=== PATIENT | male | born 2005 | race Caucasian/White ===

== ENCOUNTER 2024-01-31 14:49 | Emergency (ER) | payer OTHER, SELFPAY ==
[2024-01-31 14:51] VITALS: BP 122/87
[2024-01-31 14:56] LABS: Glucose - Point of Care 93 mg/dl (70-99)
[2024-01-31 15:08] LABS: % Basophils 0.7 % (0-2); % Immature Granulocytes 0.2 % (0-0.5); % Lymphocytes 36.3 % (20.5-51.1); % Monocytes 8.4 % (1.7-9.3); % Neutrophils 52.4 % (42.2-75.2); Absolute Eosinophils 0.1 10^3/uL (0-0.7); Absolute Monocytes 0.5 10^3/uL (0.1-0.6); Hematocrit 47.7 % (39.0-52.0); Hemoglobin 16.2 g/dL (13.0-18.0); Mean Corpuscular Hgb 28.8 pg (27.0-31.0); Mean Corpuscular Volume 84.9 fL (80.0-94.0); Mean Platelet Volume 9.4 fL (7.4-10.4); Nucleated Red Blood Cells % 0 % (-); Platelet Count 282 10^3/uL (130-400); Red Blood Cell Count 5.62 10^6/uL (4.70-6.10); Red Cell Dist. Width 12.6 % (11.5-14.5); White Blood Cell Count 5.6 10^3/uL (4.8-10.8)
[2024-01-31 15:28] LABS: ALT (SGPT) 17 U/L (0-50); AST (SGOT) 22 U/L (17-59); Albumin 5.3 g/dl (3.5-5.0); Alkaline Phosphatase 65 U/L (38-126); Blood Urea Nitrogen 17 mg/dl (9-20); Calcium 10.1 mg/dl (8.4-10.2); Carbon Dioxide 28 mmol/L (22-30); Chloride 100 mmol/L (98-107); Glucose 92 mg/dl (70-99); Potassium 4.5 mmol/L (3.5-5.1); Sodium 135 mmol/L (135-145); Total Bilirubin 1.7 mg/dl (0.2-1.3); Total Protein 8.4 g/dl (6.3-8.2); eGFR > 60.00
--- NOTE | 2024-01-31 16:38 | ED.GENMED ---
History of Present Illness
General
Chief Complaint: Blood Sugar Problem
Source: patient
Exam Limitations: none
Time Seen by Provider: 01/31/24 16:36
Nursing documentation reviewed up to this point in time: agreed with
Travel History
Have you had any contact with someone who has COVID-19?: No
Do you have any symptoms of coronavirus? Fever > 100 degrees, chills, cough, shortness of breath, sore throat, loss of taste or smell, muscle aches, or headache?: No
History of Present Illness
History of Present Illness:
18 y/o M
no pmh
vapes marijuana
says he started feeling nauseated and lightheaded after accidental injection of his mother's mounjaro 2 days ago
pt has vmoited about 2 times each day and has lost some weight, doeesn't have appetite and isn't drinking as much fluids as usual
he has styed home from work because of these symptoms
pt denies h/o DM
no alcohol abuse
has not may abdominal pain, cough, fever, cold symptoms, syncope, cp, sob, diarrhea.
mom has not checked his BG.
Past History
Past History
ED Past Medical History: None
ED Past Surgical History: Appendectomy
Social History
Tobacco: Non-smoker
Drug: Marijuana
Personal: Single
Living: with family
Employment: Employed
Review of Systems
Review of Systems
Allergies reviewed?: Yes
All Other Systems: Not applicable
Phy Exam
Physical Exam
Physical Exam:
GENERAL: Alert , in no apparent distress, very well appearing
EYE: pupils equal and reactive
NECK: Supple
ENT: o/p clr, mmm.
CARDIAC: Regular rate and rhythm .
LUNGS: Clear breath sounds bilaterally, no acute respiratory distress, no wheezes/rales/rhonchi
ABDOMEN: Soft, flat, nondistended NO RUQ TENDERNESS; no r/g, no cvat, normal bowel sounds
NEUROLOGICAL: Alert and oriented, no focal neuro deficits
SKIN: Warm and dry, skin intact.
MUSCULOSKELETAL: No edema, well perfused. neg johny's sign
PSYCH: Normal and appropriate interaction.
Course
Orders/Labs/Results
Orders:
Orders
01/31/24 14:58
Complete Blood Count/With Diff Urgent
Comprehensive Metabolic Panel Urgent
Hepatitis A Antibody, Total Urgent
Comment: ADD ON
Hepatitis B Surface Antibody Urgent
Comment: ADD ON
Hepatitis C Antibody Urgent
Comment: ADD ON
Lipase Urgent
01/31/24 16:38
Add On- LAB Urgent
Tests Added?: lipase
01/31/24 17:03
Ondansetron Orally Disint [Zofran Odt (Orally Disintegrating)] 4 mg PO NOW STA
US Abdomen Complete/Upper Urgent
Comment:
Reason For Exam: n/v x 3 days
01/31/24 19:27
Add On- LAB Urgent
Tests Added?: hepatitis A, B core and ab, hep c
Abnormal Lab Results
01/31/24
14:58
Total Bilirubin 1.7 H mg/dl
(0.2-1.3)
Total Protein 8.4 H g/dl
(6.3-8.2)
Albumin 5.3 H g/dl
(3.5-5.0)
01/31/24 14:58
01/31/24 14:58
Vital Signs
Initial and Last Documented VS:
Initial Vital Signs
Temp Pulse Resp BP Pulse Ox
98.7 F 102 18 122/87 100
01/31/24 14:51 01/31/24 14:51 01/31/24 14:51 01/31/24 14:51 01/31/24 14:51
Last Documented Vital Signs
Temp Pulse Resp BP Pulse Ox
98.7 F 85 16 116/74 97
01/31/24 14:51 01/31/24 19:42 01/31/24 19:42 01/31/24 19:42 01/31/24 19:42
MDM/Problems Addressed
Differential Diagnosis Includes:
medication side effect
panrecatitis, gi illness, canabis hypere,esis
MDM/Problems Addressed:
18 y/oM no pmh, smokes marijuana no alcohol use
3 days ago accidentally injected his thumb with his mom's mounjaro insulin dose
since, he has felt nauseated, lack of appetite, 1-2 episodes vomiting daily, and lightheaded
he looks overall really well; he says he has lost 10 pounds in 3 days
he appeared hydrated here, nontender abdomen, vitals stable
labs show normal cbc, bmp, t bili is 1.7, ast 22, alt 17, alk phos 65, lipase 79, blood glc 90
becuase of the vomiting and elev bili, i did US his abdomen - which they see biliary sludge, no stones, normal CBD; but then also note portal tria echogenicity atteunuation, which could suggest hepatocellular disease like hepatitis;
sending off hepatitis panel
d/w gi dr. [place]
felt it was most likely incidental
recommend f/u with labs and us, could be jennifer'
f/u gi outpatient
[facility] #4 for rx;
*Critical Care Note
Total Time (30-74mins, 75-104mins- exclusive of procedures): Not Applicable
ED Attending Note
-
Portions of this chart may have been created with voice recognition software.� Occasional wrong word or��sound alike� substitutions may have occurred due to the inherent limitations of voice recognition software.
Discharge Plan
Departure
Patient Disposition: Home (Routine Discharge)
Date of Disposition: 01/31/24
Time of Disposition: 20:11
Patient with high blood pressure during this ER visit?: No
Condition: Fair
Covid-19: Not Applicable
Discharge Problem:
Nausea & vomiting, Elevated bilirubin
Prescriptions:
New
ondansetron 4 mg tablet,disintegrating
4 mg PO Q8H PRN (Reason: nausea and vomiting) 2 Days Qty: 4 0RF
Referrals:
Domenico Yang MD [Active] - Follow up in 5-7 days (GI)
Salvatore Walsh DO [Family Provider] - Follow up in 2-3 days
Stand Alone Forms: Return to Work
Activity Restrictions/Additional Instructions:
YOUR BLOOD WORK SHOWED ONE OF YOUR LIVER MARKERS WAS MINIMALLY ELEVATED
THIS NEEDS TO BE FOLLOWED UP BY A GI DOCTOR AN OUTPATIENT
YOU CAN CALL YOUR PRIMARY IN THE MEANTIME
THE ULTRASOUND SHOWS SOME POSSIBLE SIGNS OF INFLAMMATION THAT NEED TO BE FOLLOWED UP - THIS COULD BE COMPLETELY INCIDENTAL
WE ARE SENDING A PANEL OFF ON THE BLOOD TO TEST FOR HEPATITIS. WE WILL CALL YOU IF THIS IS POSITIVE
RETURN FOR SEVERE PAIN, FEVER, SKIN CHANGES, REPEATED VOMITING OR ANY CONCERNS.
Interventions
Interventions:
*Risk Screen - Suicide Last Done: 01/31/24 14:51
*General Assessment Last Done: 01/31/24 14:51
*Neglect/Abuse Screening Last Done: 01/31/24 14:51
ED- Fall Risk Assessment Last Done: 01/31/24 20:25
*ED COVID-19 Vaccine History Last Done: 01/31/24 14:51
*Nursing Disposition Last Done: 01/31/24 20:25
ED- Neurological Assessment Last Done: 01/31/24 17:18
Discharge Date and Time
Discharge Date/Time: 01/31/24 20:26
Print Language: NAURUAN
[2024-01-31] MEDS: ZOFRAN ODT (ORALLY DISINTEGRATING) 4 MG PO (17:09)
[2024-01-31 17:30] LABS: Lipase 79 U/L (23-300)
[2024-01-31 19:42] VITALS: BP 116/74
[2024-01-31 21:05] LABS: Hepatitis B Surface Antibody Negative; Hepatitis C Antibody Negative (Negative)
[2024-01-31 21:38] LABS: Hepatitis A Antibody, Total Positive (Negative)
== END 2024-01-31 20:26 | disposition home or self-care (01) ==
LOC: EMR 14:49
PROVIDERS: EMERGENCY PHYSICIAN Emergency Medicine; FAMILY PHYSICIAN Pediatrics
DX: R11.2 Nausea with vomiting, unspecified (principal); R94.5 Abnormal results of liver function studies
CPT/HCPCS: 99284; 76700; 80053; 82962; 83690; 85025; 86706; 86708; 86803